=== PATIENT | female | born 1990 | race Caucasian/White ===

== ENCOUNTER 2017-02-21 10:58 | Emergency (ER) | payer MEDICAID ==
[~2017-02-21] VITALS: Ht 157.5 cm; Wt 69.0 kg
[2017-02-21 11:21] VITALS: BP 130/70; PULSE 106; RESP 16; TEMP 98.2; O2SAT 99
--- NOTE | 2017-02-21 12:27 | PD ---
HPI Chief Complaint: Cold / Flu Symptoms Time Seen by Provider: 11:55 Travel History International Travel<30 days: No Contact w/Intl Traveler<30days: No Traveled to known affect area: No History of Present Illness HPI 26-year-old female presents to the ED for evaluation of 3 day history of ear pressure, dulled hearing, sinus congestion, runny nose and sore throat. Patient endorses temp of 100.2 last night. Came down with ibuprofen. She denies cough, nausea, vomiting, sick contacts. She did not receive this years flu vaccine. PFSH Past Medical History Medical History: Denies Significant Hx Diminished Hearing: No Tetanus Vaccination: > 5 Years Influenza Vaccination: No ?: Not : 1 Para: 0 Past Surgical History Surgical History: No Previous Surgery Social History Alcohol Use: No Tobacco Use: No Substance Use: No Allergies-Medications (Allergen,Severity, Reaction): Coded Allergies: Sulfa (Sulfonamide Antibiotics) (Unverified Allergy, Severe, 02/21/17) Reported Meds & Prescriptions Reported Meds & Active Scripts Active No Active Prescriptions or Reported Medications Review of Systems Except as stated in HPI: all other systems reviewed are Neg Physical Exam Narrative GENERAL: Well-nourished, well-developed white female in no acute distress. SKIN: Warm and dry. HEAD: Normocephalic. Atraumatic. EYES: No scleral icterus. No injection or drainage. PERRLA. EOMI. ENT: Pearly mayberry tympanic membranes bilaterally. Lateral serous effusions. Nasal mucosa is moist. Oropharynx erythematous, tonsils 2+ bilaterally with jesus pockets of exudate. Uvula midline. Airway patent. NECK: Supple, trachea midline. Positive anterior cervical lymphadenopathy. CARDIOVASCULAR: Regular rate and rhythm without murmurs, gallops, or rubs. RESPIRATORY: Breath sounds clear and equal bilaterally. No accessory muscle use. GASTROINTESTINAL: Abdomen soft, non-tender, nondistended. + Bowel sounds MUSCULOSKELETAL: No cyanosis, or edema. BACK: Nontender without obvious deformity. No CVA tenderness. Data Data Last Documented VS Vital Signs Date Time Temp Pulse Resp B/P (MAP) Pulse Ox O2 Delivery O2 Flow Rate FiO2 02/21/17 11:21 98.2 106 16 130/70 (90) 99 Orders Orders Group A Rapid Strep Screen (02/21/17 12:26) Amoxicillin (Trimox) (02/21/17 12:45) [facility] Medical Decision Making Medical Screen Exam Complete: Yes Emergency Medical Condition: Yes Differential Diagnosis Pharyngitis versus strep pharyngitis versus sinusitis versus viral syndrome versus other Narrative Course 26-year-old female presents to the ED for evaluation of 3 day history of ear pressure, dulled hearing, sinus congestion, runny nose and sore throat. Patient endorses temp of 100.2 last night. Came down with ibuprofen. She denies cough, nausea, vomiting, sick contacts. She did not receive this years flu vaccine. Patient's afebrile on presentation. On exam there is bilateral serous effusions in the ears. The tonsils are 2+ with jesus pockets of exudate bilaterally. Uvula midline. Airway patent. Positive anterior cervical lymphadenopathy. Culture was obtained. We'll treat empirically for strep pharyngitis. Patient's prescribed amoxicillin 500 mg 10 days. She is instructed to continue to treat fever with OTC medications as needed. She is instructed to discard her toothbrush in this illness. She indicated understanding of instructions is able to care plan. This patient is stable discharged home. Diagnosis Primary Impression: Strep pharyngitis Referrals: Ear / Nose / Throat Specialist Patient Instructions: General Instructions, Strep Throat (ED) Departure Forms: Tests/Procedures, Work Release Enter return to work date: Feb 25, 2017 Additional Instructions: Rest, hydrate. Push fluids such as sports drinks, Pedialyte, popsicles, clear broth. Take every antibiotic pill until they are all gone. Alternating Motrin and Tylenol every 4-6 hours as needed for continued fever. Increase handwashing frequently to avoid the spread of the illness to other family members and the community. Disinfect commonly touched surfaces such as light switches, microwaves, remote controls. Replace toothbrush at the end of this illness. Follow-up with the primary care provider this week. Return to the ED for any urgent or emergent medical condition. Med/Other Pt SpecificInfo: Prescription(s) given Scripts Amoxicillin (Amoxicillin) 500 Mg Cap 500 MG PO BID for Infection for 10 Days, #20 CAP 0 Refills Prov: Edu Braxton MD 02/21/17 Disposition: 01 DISCHARGE HOME Condition: Stable Christen Tirado Feb 21, 2017 12:27
[2017-02-21] MEDS ORDERED: AMOX500C PO (12:33)
[2017-02-21] MEDS ORDERED: AMOXICILLIN (TRIHYDRATE) 500 MG CAP PO ONE (12:45)
== END 2017-02-21 13:14 | disposition home or self-care (01) ==
LOC: PHEFT 10:58
DX: J02.0 Streptococcal pharyngitis (principal); R09.81 Nasal congestion; R09.89 Other specified symptoms and signs involving the circulatory and respiratory systems; R59.1 Generalized enlarged lymph nodes; Z88.2 Allergy status to sulfonamides
CPT/HCPCS: 87081; 87880; 99283